=== PATIENT | female | born 1975 | race Caucasian/White ===

== ENCOUNTER 2019-12-10 11:23 | Emergency (ER) | payer BC, SELFPAY ==
[2019-12-10 11:35] VITALS: BP 142/94; PULSE 88; RESP 18; TEMP 36.4; O2SAT 100
--- NOTE | 2019-12-10 11:38 | ED.EYEPROB ---
HPI - Eye Problem General Chief complaint: Eye Problems Stated complaint: eye problems Time Seen by Provider: 12/10/19 11:38 Source: patient Mode of arrival: ambulatory Limitations: no limitations History of Present Illness HPI Narrative: Vanessa Cisneros is 44 YO female with a PMH of RA and asthma, who comes to express care with bilateral eye injection. Started a few weeks ago, has, some matting in eyes in morning but generally are irritated. Has used polymxixn and refresh drops. Visual acuity normal- had lasik surgery 18 years ago Related Data Home Medications Medication Instructions Recorded Confirmed albuterol sulfate [Ventolin HFA] 2 inh INHALATION Q4-5H PRN 12/10/19 12/10/19 etanercept [Enbrel SureClick] 50 mg SUBCUT WEEKLY 12/10/19 12/10/19 Allergies Allergy/AdvReac Type Severity Reaction Status Date / Time No Known Allergies Allergy Verified 12/10/19 11:28 Review of Systems Review of Systems: Narrative: CONSTITUTIONAL: Denies fever, chills, sweats. EYES: Denies visual changes, bilateral redness, discharge. ENT: Denies rhinorrhea, congestion, sore throat, otalgia. CARDIOVASCULAR: Denies chest pain, palpitations, edema. RESPIRATORY: Denies dyspnea, wheezing, cough GASTROINTESTINAL: Denies abdominal pain, nausea, vomiting, diarrhea. GENITOURINARY: Denies dysuria, hematuria, abnormal discharge SKIN: Denies rash or itching. NEUROLOGIC: Denies numbness, or focal weakness. PSYCHIATRIC: Denies anxiety or depression. PMFSH Family History Family History Father Diabetes mellitus Mother Family history of chronic obstructive pulmonary disease Other Family history of gout Family history of rheumatoid arthritis Social History Social History Smoking status: Current every day smoker Alcohol intake: current Comments At time of signature, I agree with nursing past medical, surgical, social and family history. There is no relevant family history pertinent to the presenting complaint. BP elevated - painul eyes, father last week- multiple stressors - follow up with pcp Exam Narrative: Exam Narrative: GENERAL: This is a well-nourished, well-developed patient, in mild distress. HEAD: normocephalic, atraumatic. EYES: PERRL. Mild bilateral injection, redness on the rims and inner canthus; vision is grossly intact. States feels gritty EARS: External ears normal. Hearing grossly intact. NOSE: External nose normal without nasal discharge, nares without redness, no rhinorrhea. THROAT: Mucous membranes moist, NECK: Neck supple, CARDIOVASCULAR: Regular rate and rhythm without murmurs, gallops, or rubs. RESPIRATORY: Clear to auscultation. Breath sounds equal bilaterally. No wheezes, rales, or rhonchi. GASTROINTESTINAL: Abdomen soft, SKIN: warm, intact with no suspicious lesions or rash, good texture and turgor. NEURO: awake, alert, and oriented to person, place and time. There were no obvious focal neurologic abnormalities. Steady gait EXTREMITIES: Normal range of motion. BACK: Nontender without deformity Course Course Emergency Course: started on patalol and polymixin- referred back to opthalmologist if continues with eye irritation Vital Signs Vital signs: Vital Signs Temperature 97.5 F L 12/10/19 11:35 Pulse Rate 88 12/10/19 11:35 Respiratory Rate 18 12/10/19 11:35 Blood Pressure 142/94 H 12/10/19 11:35 Pulse Oximetry 100 12/10/19 11:35 Temperature 97.5 F L 12/10/19 11:35 Pulse Rate 88 12/10/19 11:35 Respiratory Rate 18 12/10/19 11:35 Blood Pressure 142/94 H 12/10/19 11:35 Pulse Oximetry 100 12/10/19 11:35 MDM - Eye Problem Differential Diagnosis Differential diagnosis: Likely corneal abrasion, conjunctivitis and other Discharge Plan Discharge Clinical Impression: Bacterial conjunctivitis Patient Disposition: Home, Self-Care Condition: Sta
== END 2019-12-10 12:18 | disposition home or self-care (01) ==
PROVIDERS: Emergency Provider Nurse Practitioner; PCP Family Medicine
DX: H11.89 Other specified disorders of conjunctiva (principal)
CPT/HCPCS: 99213; G0463

== ENCOUNTER → 2020-02-26 10:36 | Outpatient (CLI) | payer BC, SELFPAY ==
--- NOTE | ~2020-02-26 | XR_ITS ---
EXAMINATION: XR ribs RT 2V w CXR 2V INDICATION: Right lower/posterior rib pain, shortness of breath, pain with breathing TECHNIQUE: Frontal and lateral views of the chest and 3 views of the right ribs were obtained. COMPARISON: 11/29/2018 FINDINGS: The lungs are free of acute opacities. There is no pleural effusion or pneumothorax. The ca rdiomediastinal silhouette is normal. There is mild thoracic spondylosis. No displaced rib fracture i s identified. Bilateral breast implants are noted. IMPRESSION: 1. No acute cardiopulmonary abnormality or evidence of displaced rib fracture. Reviewed, dictated and finalized at location A.
== END ==
PROVIDERS: Visit Provider Physician Assistant
DX: S20.90XA Unspecified superficial injury of unspecified parts of thorax, initial encounter (principal); X58.XXXA Exposure to other specified factors, initial encounter
CPT/HCPCS: 71046; 71100

== ENCOUNTER 2020-06-19 09:35 | Outpatient (CLI) | payer BC, SELFPAY ==
--- NOTE | ~2020-06-19 | MM_ITS ---
EXAMINATION: MM scrn nancy implant BI w ahmet HISTORY: Screening mammogram TECHNIQUE: Craniocaudal and mediolateral oblique 3-D tomosynthesis images with implant displacement a nd synthetic 2-D images were generated. Craniocaudal and mediolateral oblique views of the breasts wi thout implant displacement were obtained using full field digital mammography. CAD analysis was submi tted and interpreted. COMPARISON: 05/24/2019, 05/18/2018, 04/29/2017 bilateral implant digital screening mammogram examinati ons BREAST PARENCHYMAL COMPOSITION: The breasts are heterogeneously dense, which may obscure small masses . FINDINGS: Status post bilateral augmentation mammoplasty. New 5 mm opacity in the posterior inner mid left breast (craniocaudal Tomosynthesis image /). Gogo gnostic left mammogram and left breast ultrasound examination are recommended. Otherwise there is no evidence of suspicious mass, calcification, or architectural distortion to sugg est malignancy in either breast. There has been no suspicious interval change. IMPRESSION: 1. New 5 mm opacity at posterior inner mid left breast 2. Diagnostic left mammogram and targeted left breast ultrasound examination are recommended. BI-RADS Category 0: Incomplete: Needs additional imaging evaluation. Reviewed, dictated and finalized at location A. COMPANION IMPRESSION: 1. New 5 mm opacity at posterior inner mid left breast 2. Diagnostic left mammogram and targeted left breast ultrasound examination ar e recommended. BI-RADS Category 0: Incomplete: Needs additional imaging evaluation.
== END 2020-06-19 09:36 | disposition home or self-care (01) ==
LOC: ANHIMG 09:38
PROVIDERS: PCP Family Medicine; Visit Provider Obstetrics & Gynecology
DX: Z12.31 Encounter for screening mammogram for malignant neoplasm of breast (principal); R92.8 Other abnormal and inconclusive findings on diagnostic imaging of breast
CPT/HCPCS: 77063; 77067

== ENCOUNTER 2020-09-03 11:28 | Outpatient (CLI) | payer BC, SELFPAY ==
--- NOTE | ~2020-09-03 | MMUS_ITS ---
EXAMINATION: MM diagnostic mammo unilat LT, US breast LT limited HISTORY: New 5 mm mammographic opacity at posterior inner mid left breast reported on 06/19/2020 scre ening mammogram examination TECHNIQUE: Additional 3-D tomosynthesis images of the left breast were performed and synthetic 2-D im ages were generated. CAD analysis was submitted and interpreted. High resolution upper inner and lowe r inner left breast ultrasound was performed. COMPARISON: 06/19/2020 bilateral digital screening mammogram FINDINGS: MAMMOGRAPHIC FINDINGS: A 6 mm circumscribed opacity is confirmed in the inner mid left breast (spot craniocaudal Tomosynthes is image 18/42). ULTRASOUND: At the area of mammographic finding at 9:00 7 cm from the nipple is an oval parallel circumscribed hy poechoic solid lesion measuring approximately 3 x 5 x 6 mm, with some posterior shadowing. Ultrasound -guided biopsy is recommended. IMPRESSION: 1. 6 mm solid lesion at 9:00 7 cm from nipple with some posterior shadowing 2. Ultrasound-guided biopsy is recommended BI-RADS category 4, suspicious findings. Reviewed, dictated and finalized at location A. [employer]ICER IMPRESSION: 1. 6 mm solid lesion at 9:00 7 cm from nipple with some posterior shadowing 2. Ultrasound-guided biopsy is recommended BI-RADS category 4, suspicious findings.
== END 2020-09-03 11:29 | disposition home or self-care (01) ==
LOC: ANHIMG 11:31
PROVIDERS: PCP Family Medicine; Visit Provider Obstetrics & Gynecology
DX: R92.8 Other abnormal and inconclusive findings on diagnostic imaging of breast (principal)
CPT/HCPCS: 76642; 77065

== ENCOUNTER → 2021-09-01 07:49 | Outpatient (CLI) | payer OTHER, SELFPAY ==
--- NOTE | ~2021-09-01 | US_ITS ---
EXAMINATION: US right upper quadrant DATE: 09/01/2021 08:11 INDICATION: Right upper quadrant abdominal pain. TECHNIQUE: Multiple grayscale and Doppler ultrasound images of the abdomen were obtained. COMPARISON: None FINDINGS: Abdominal aorta is normal in caliber. The visualized portions of the head, body, and tail o f the pancreas are normal. The liver is normal without focal lesion. There is normal flow in main por moira vein. The gallbladder is normal in size. No gallstones or gallbladder wall thickening. There is n o sonographic Ruiz sign. The common duct is normal and measures 4 mm. IMPRESSION: 1. Normal right upper quadrant ultrasound. Reviewed, dictated and finalized at location A. RLINER
== END ==
PROVIDERS: Visit Provider Physician Assistant Medical
DX: R10.11 Right upper quadrant pain (principal)
CPT/HCPCS: 76705

== ENCOUNTER 2022-07-13 07:10 | Outpatient (CLI) | payer OTHER, SELFPAY ==
--- NOTE | ~2022-07-13 | NM_ITS ---
EXAMINATION: NM hepatobiliary wo pharm DATE: 07/13/2022 09:40 ONION TOPPER INDICATION: Right upper quadrant abdominal pain COMPARISON: Ultrasound dated 09/01/2021. TECHNIQUE: 5.2 mCi Tc-99m mebrofenin (Choletec) was administered intravenously. Scintigraphic images of the abdomen were obtained for one hour. At the 1 hour time point, the patient drank 8 oz Ensure, and imaging was continued for 60 minutes. Gallbladder ejection fraction was calculated by the technol ogist. FINDINGS: There is normal clearance of radiotracer from the blood pool. There is homogeneous tracer u ptake by the liver. Activity progresses to the bowel and gallbladder. The gallbladder ejection fract ion is 80%. Note that with this technique, normal GBEF >= 33%. IMPRESSION: 1. Normal hepatobiliary scan. Reviewed, dictated and finalized at location A. N TOPPER
== END 2022-07-13 07:11 | disposition home or self-care (01) ==
PROVIDERS: PCP Family Medicine; Visit Provider Physician Assistant
DX: R10.11 Right upper quadrant pain (principal)
CPT/HCPCS: 78226; A9537

== ENCOUNTER 2022-08-28 01:14 | Day surgery (SDC) | payer OTHER, SELFPAY ==
[2022-08-24 10:31] VITALS: BMI 22.8
--- NOTE | 2022-08-24 10:38 | PC.NURSE ---
Report to the Outpatient Waiting Room, entrance under the green pavilion located off [facility], at time 9:30 on date 08/28/22. Planned Procedure Time: 11:30. Time changes happen often and if your time is changed the preop area will call you the afternoon before. - You and your visitor will be asked to self-screen and do not enter if you have any COVID symptoms. - Only one visitor is requested with a max of two and NO children visitors are allowed at this time. - The patient visitor may be requested to leave or wait in car when not with patient due to distancing restrictions. - A mask is optional within the hospital at this time. Patients may have clear liquids (water, carbonated beverages, clear teas, apple juice) until 3 hours prior to surgery (8:30) with a maximum of 20 ounces. - No food from midnight until time of surgery Take the following medications with a SIP of water the morning of surgery: INHALERS DO NOT STOP ANY OF YOUR OTHER PRESCRIPTION MEDICATIONS PRIOR TO SURGERY?EXCEPT THE FOLLOWING Medications to discontinue per physician: N/A Date to take last dose: N/A Please no make-up, nail indonesian, hairspray, perfume, deodorant, or body powder the day of surgery. No jewelry (including any body piercings) or valuables the day of surgery, leave them at home. Please take a shower or bath the night before, or the morning of, surgery with an antibacterial soap. Wear comfortable, loose fitting clothing. - Jewelry must be removed prior to entering the operating room. Rings and piercings that are not removed may be cut off. - The hospital will not accept responsibility for valuables. - Please leave all valuables, including medications, at home the day of surgery. If you are going home after surgery, a licensed funeral driver must drive you home. - NO public transportation without another adult if you receive anesthesia. - We recommend that an adult stay with you for 24 hours following discharge. - We also recommend that you do not drive, make important decision, drink alcoholic beverages, or take any drugs that were not prescribed by your health care provider for at least 24 hours after your discharge time. Follow any additional instructions given to you from your surgeon. If you or anyone in your household have experienced Covid symptoms in the past week, please notify your surgeon or the nurse liaison at the phone number below for possible testing. Telephone instructions given to PT - GREGORIO WEEMS and asked if any additional questions and then verbalized understanding. Patient advised to call surgeon office or pre surgery nurse liaison [phone] if any additional questions.
--- NOTE | 2022-08-26 07:44 | P.HP_ITS ---
H&P: HPI History of Present Illness Date/Time: 08/26/22 07:44 Chief Complaint: Recurrent dysplasia Narrative: This is a 47-year-old female admitted for robotic hysterectomy and bilateral salpingectomy secondary to recurrent high-grade dysplasia. This patient has had multiple followups with continued worsening abnormal Paps. Risks and benefits of this procedure reviewed including not exclusive of , aspiration pneumonia, bleeding, transfusion, perforation injury to bowel, bladder, ureters, or other internal organs with need for laparotomy. She received the ACOG handout entitled hysterectomy as well as Ativan she handout. She had all questions answered. She asked to proceed [facility] Family History Family History Father Diabetes mellitus Mother Family history of chronic obstructive pulmonary disease Other Family history of gout Family history of rheumatoid arthritis Social History Social History Smoking packs per day: 0.25 Smoking cigarettes per day: 5.0 Years smoked: 6 Smoking pack-years: 1.50 Smoking status: Current every day smoker Tobacco type: cigarettes Alcohol intake: current Drinks per week: 10 Substance use: never Substance use type: does not use Living arrangements: with family Spiritual care concerns: No Meds Home Medications and Allergies Home Medications Medication Instructions Recorded Confirmed Type albuterol sulfate 90 mcg/actuation 2 inh inhalation Q4-5H PRN 08/22/21 08/24/22 Rx aerosol inhaler (Ventolin HFA) Shortness Of Breath #8.5 grams omeprazole 40 mg capsule,delayed 40 mg PO DAILY 30 days #30 caps 09/05/21 08/24/22 Rx release adalimumab 40 mg/0.8 mL See Rx Instructions subcut .COMPLEX 07/07/22 08/24/22 History subcutaneous pen kit (Humira Pen) Symbicort 160 mcg-4.5 See Rx Instructions .Route 07/20/22 08/24/22 Rx mcg/actuation HFA aerosol inhaler .COMPLEX #10.2 grams (budesonide-formoterol) Allergies Allergy/AdvReac Type Severity Reaction Status Date / Time No Known Allergies Allergy Verified 08/24/22 10:31 Exam Const: General: cooperative, healthy appearing, comfortable, well groomed and average body habitus Orientation/consciousness: oriented to person, oriented to place and oriented to time HENMT: Head: normal to inspection Resp: Effort & Inspection: normal respiratory effort Cardio: Rate: regular rate Rhythm: regular rhythm Heart sounds: S1 normal heart sound present and S2 normal heart sound present GI: Inspection: normal to inspection Auscultation: normal bowel sounds : External Female Exam: normal external appearance Speculum Exam - Vagina: normal appearance of the vagina Speculum Exam - Cervix: normal appearance of the cervix Bimanual exam- vagina & uterus: uterine shape normal and non-tender Bimanual Exam- Adnexa, other: normal adnexae Assessment and Plan Assessment and plan (1) HGSIL (high grade squamous intraepithelial dysplasia): Status: Acute Plan Robotic total vaginal hysterectomy and bilateral salpingectomy
[2022-08-28] VITALS (8 sets, daily range): BP systolic 112–130; BP diastolic 65–89; PULSE 60–91; RESP 10–18; TEMP 36.6–37.3; O2SAT 97–100
--- NOTE | 2022-08-28 07:05 | WPDHPUPDATE1 ---
History and Physical Update Update Date/Time: 08/28/22 07:05 History and Physical has been reviewed, including an updated exam of the patient. There are NO changes in the patient's condition. Risks, benefits, and alternatives have been discussed and questions answered. Patient agrees to proceed with procedure.
[2022-08-28] MEDS: LACTATED RINGERS 1,000 ML 30 ML IV CONT ×2 (09:33→13:39)
[2022-08-28] MEDS: KETOROLAC 15 MG/ML VIAL (*BKC) IV PUSH (09:35)
[2022-08-28] MEDS: ACETAMINOPHEN 500 MG TABLET 1000 MG PO (09:43)
[2022-08-28 09:53] LABS: Basophils Percent Auto 1.1 % (0.2-1.2); Eosinophils Absolute Auto 0.2 K/mm3 (0-0.3); Eosinophils Percent Auto 4.2 % (0-4.4); Hematocrit 41.6 % (37.0-47.0); Hemoglobin 13.6 g/dL (12.0-15.0); Immature Granulocyte Absolute 0.01 K/mm3 (0.00-0.031); Immature Granulocyte Percent A 0.3 % (0-0.5); Lymphocytes Absolute Auto 1.44 K/mm3 (0.9-3.2); Mean Corpuscular HGB Conc 32.7 g/dl (32-36); Mean Corpuscular Hemoglobin 31.7 pg (26-34); Mean Platelet Volume 9.4 fl (7.4-10.4); Monocytes Absolute Auto 0.6 K/mm3 (0.1-0.6); Monocytes Percent Auto 15.6 % (2.6-8.5); Neutrophils Absolute Auto 1.6 K/mm3 (1.3-6.7); Neutrophils Percent Auto 40.8 % (45.5-73.1); Platelet Count Result 307 k/mm3 (150-375); Red Blood Count 4.29 M/mm3 (4.2-5.4); Red Cell Distribution Width 13.4 % (11.5-14.5); White Blood Count 3.8 K/mm3 (4.5-10.0)
--- NOTE | 2022-08-28 10:25 | WPDANESEPPF ---
Anes - Initial Pre Proc Eval Procedure: Operation Date: 08/28/22 11:30 Proposed Procedures p Robotic Assisted Total Vaginal Hysterectomy with Bilateral Salpingectomy - Arnold Kelley MD Date/Time: 08/28/22 10:25 Surgeon: Arnold Kelley MD Pre Op Diagnosis: Enlarged Uterus, Abnormal Pap, (Dx Cont) Patient Data Age: 47 Gender: F Height: 1.73 m Weight: 67.25 kg Last Vital Signs Temp 97.8 F 08/28/22 09:10 Pulse 84 08/28/22 09:10 Resp 16 08/28/22 09:10 BP 122/85 08/28/22 09:10 Pulse Ox 97 08/28/22 09:10 O2 Del Method Room Air 08/28/22 09:10 Allergies Allergy/AdvReac Type Severity Reaction Status Date / Time No Known Allergies Allergy Verified 08/28/22 09:37 Home Medications Medication Instructions Recorded Confirmed Type albuterol sulfate 90 mcg/actuation 2 inh inhalation Q4-5H PRN 08/22/21 08/24/22 Rx aerosol inhaler (Ventolin HFA) Shortness Of Breath #8.5 grams omeprazole 40 mg capsule,delayed 40 mg PO DAILY 30 days #30 caps 09/05/21 08/28/22 Rx release adalimumab 40 mg/0.8 mL See Rx Instructions subcut .COMPLEX 07/07/22 08/24/22 History subcutaneous pen kit (Humira Pen) Symbicort 160 mcg-4.5 See Rx Instructions .Route 07/20/22 08/28/22 Rx mcg/actuation HFA aerosol inhaler .COMPLEX #10.2 grams (budesonide-formoterol) Laboratory Tests 08/28/22 09:17 WBC 3.8 K/mm3 L K/mm3 (4.5-10.0) RBC 4.29 M/mm3 M/mm3 (4.2-5.4) Hgb 13.6 g/dL g/dL (12.0-15.0) Hct 41.6 % % (37.0-47.0) MCV 97.0 fl fl (80-100) MCH 31.7 pg pg (26-34) MCHC 32.7 g/dl g/dl (32-36) RDW 13.4 % % (11.5-14.5) Plt Count 307 k/mm3 k/mm3 (150-375) MPV 9.4 fl fl (7.4-10.4) Immature Gran % (Auto) 0.3 % % (0-0.5) Neut % (Auto) 40.8 % L % (45.5-73.1) Lymph % (Auto) 38.0 % % (18.3-44.2) [place] % (Auto) 15.6 % H % (2.6-8.5) Eos % (Auto) 4.2 % % (0-4.4) Baso % (Auto) 1.1 % % (0.2-1.2) Lymph # (Auto) 1.44 K/mm3 K/mm3 (0.9-3.2) [place] # (Auto) 0.6 K/mm3 K/mm3 (0.1-0.6) Eos # (Auto) 0.2 K/mm3 K/mm3 (0-0.3) Baso # (Auto) 0.0 K/mm3 K/mm3 (0.0-0.1) Abs Immat Gran (auto) 0.01 K/mm3 K/mm3 (0.00-0.031) Absolute Neuts (auto) 1.6 K/mm3 K/mm3 (1.3-6.7) Absolute Nucleated RBC 0.0 K/mm3 K/mm3 (0.0-0.012) Nucleated RBC % 0.0 % % (0.0-0.2) Patient hx anesthesia problems: none Family hx anesthesia problems: none Results Review: All pre-operative results and documents have been reviewed as part of the pre-operative evaluation. [facility] Family History Family History Father Diabetes mellitus Mother Family history of chronic obstructive pulmonary disease Other Family history of gout Family history of rheumatoid arthritis Social History Social History Smoking packs per day: 0.25 Smoking cigarettes per day: 5.0 Years smoked: 6 Smoking pack-years: 1.50 Smoking status: Current every day smoker Tobacco type: cigarettes Alcohol intake: current Drinks per week: 10 Substance use: never Substance use type: does not use Living arrangements: with family Spiritual care concerns: No Anes - Eval Final PreProcedure Day of Procedure 08/28/22 10:25 Patient weight: normal Heart: regular rate and rhythm Lungs: clear to auscultation Airway: Mallampati scale class II Neurological: alert and oriented Last oral intake: >/= 8 hours ASA classification: II Emergent: no Anesthetic plan: proceed Anesthesia type and monitoring: general ETT and standard monitoring Results Review: All pre-operative results and documents have been reviewed as part of the pre-operative evaluation. Informed Consent: The patient's anesthetic plan and its attendant risks and benefits were discussed with the patient/family/POA. Questions were solicited and ans
--- NOTE | 2022-08-28 11:39 | SUR.PREOP ---
pt informed delay in procedure.
[2022-08-28] MEDS: ceFAZolin 2 GM/D5W 50 ML 2 GM/50 ML BAG IVPB (12:26)
--- NOTE | 2022-08-28 13:27 | W.PM.PROC2 ---
Procedure Note - Detailed Date of Procedure 08/28/22 Pre-op Diagnosis Enlarged Uterus, Abnormal Pap, (Dx Cont) Post-op Diagnosis Other ( left ovarian mass) Procedure Performed robotic total vaginal hysterectomy and bilateral salpingectomy with resection of left ovarian mass Surgeon Arnold Kelley MD Anesthesia General Indications this is a 47-year-old female with some pelvic pain and recurrent high-grade dysplasia Findings fairly normal-appearing uterus right ovary and tube left tube. A solid nodular growth off the uterus was noted which had a very benign bland appearance. Description of Procedure Patient was prepped draped in the normal sterile fashion placed in dorsal lithotomy position. Under excellent general trach anesthesia weighted speculum placed posterior fornix vagina. Anterior lip of the cervix grasped with single-tooth tenaculum. Uterus sounded to7.5cm. Serial dilatation with fragmented performed followed by passage of the 6. RYAN and the 3. Cold cup. A 16 Divehi catheter was placed in the bladder draining clear urine and the weighted speculum was removed with the single-tooth. The gloves were changed. A supraumbilical incision was made the Veress needle passed in the abdomen. Abdomen filled with CO2 gas [id number]. The 8mm trocar advanced in the abdomen. Downside visualized no injury seen. Patient placed in Trendelenburg and right and left lateral quadrant incisions made. 8mm trocars were advanced under direct visualization assuring no injury. A right upper quadrant incision made and the 8mm trocar advanced under direct visualization again assuring no injury. The robot was docked. Attention was turned to the console. The left round ligament was grasped, burned, cut. Anteriorly a bladder flap was formed by sharply dissecting the peritoneum and reflecting the bladder caudally away from the cervix uterus the opposite round ligament was clamped, burned, cut. Next the left fallopian tube was sharply dissected away from the ovarian complex and left attached to the uterine origin. The right fallopian tube was removed likewise by resecting the tube from the ovarian complex and leaving it attached to the uterine complex. The left utero-ovarian ligament was skeletonized to conserve the left ovary clamped, burned, cut and brought to the level of previously cut round ligament. In like fashion conserving the right ovary the utero-ovarian ligament was clamped, burned, cut and brought to the level of previously cut round ligament. Next the cardinal broad ligaments on the left were serially skeletonized clamping burning cutting until the uterine vessels could be seen left these were individually clamped, burned, cut. In like fashion the opposite side on the right the uterine ovarian ligaments were skeletonized clamped, burned, cut. The cardinal broad ligaments were clamped burned and cut and brought down lateral edge of the uterus until the uterine vessels could be seen on the right these were individually clamped, burned, cut. Colpotomy incision was made in the uterus tubes and cervix removed through the vagina. A solid golfball size mass was noted on the left ovary. Using sharp dissection this was shelled off without difficulty and passed through the vaginal incision. The vagina was then closed with continuous running 0V lock from lateral edge to lateral edge back to the midline. Irrigation undertaken to clear in all pedicles appeared dry robot was undocked the gas removed from the abdomen. The trocars removed and the incisions closed with 4 Monocryl and glue. The patient was awakened went to recovery in satisfactory condition. All sponge, needle, instrument counts were correct. There were no immediate complications Estimated Blood Loss 25 Drains No Packing No Pathology Yes Complications No immediate complications Condition Stable Disposition PACU
--- NOTE | 2022-08-28 13:31 | PM.DS ---
DS: Admitting Diagnosis Discharge Date 08/29/2022 Admitting Diagnosis recurrent high-grade dysplasia DS: Discharge Diagnosis Discharge Diagnosis (1) HGSIL (high grade squamous intraepithelial dysplasia): Status: Acute (2) Ovarian mass, left: Code(s): N83.8 - Other noninflammatory disorders of ovary, fallopian tube and broad ligament Status: Acute DS: Summary Hospital Course Reason for hospitalization: patient was admitted for robotic total vaginal hysterectomy and bilateral salpingectomy. Hospital Course: Patient underwent robotic total vaginal hysterectomy bilateral salpingectomy with removal of a left ovarian mass on 08/28/2022. Hospital course was unremarkable. She remained afebrile. She was up, voiding without difficulty, ambulating, eating regular diet, generally without complaints. Time Spent with Patient Time attestation: Total time spent providing and/or coordinating discharge services: Exam Const: General: cooperative, healthy appearing and comfortable Nutritional Appearance: average body habitus Orientation/consciousness: oriented to person, oriented to place and oriented to time HENMT: Head: normal to inspection Resp: Effort & Inspection: normal respiratory effort Cardio: Rate: regular rate Rhythm: regular rhythm Heart sounds: S1 normal heart sound present and S2 normal heart sound present GI: Inspection: normal to inspection and incision ( Wounds are clean dry and intact) DS: Data Data Completed and Pending Pending studies at discharge: Pending at discharge 08/28/22 13:03 Surgical [PTH] Routine Labs on day of discharge: Labs from last 24 hours 08/28/22 08/28/22 09:17 09:17 WBC 3.8 L RBC 4.29 Hgb 13.6 Hct 41.6 MCV 97.0 MCH 31.7 MCHC 32.7 RDW 13.4 Plt Count 307 MPV 9.4 Immature Gran % (Auto) 0.3 Neut % (Auto) 40.8 L Lymph % (Auto) 38.0 [place] % (Auto) 15.6 H Eos % (Auto) 4.2 Baso % (Auto) 1.1 Lymph # (Auto) 1.44 [place] # (Auto) 0.6 Eos # (Auto) 0.2 Baso # (Auto) 0.0 Abs Immat Gran (auto) 0.01 Absolute Neuts (auto) 1.6 Absolute Nucleated RBC 0.0 Nucleated RBC % 0.0 Blood Type A Positive Antibody Screen Negative Discharge Plan Discharge Patient Disposition: Home, Self-Care Discharge Instructions: Call or return if temperature above 100.4? F, increased abdominal pain, increased vaginal bleeding or any new problems. Nothing in vagina for six weeks. Patient Instructions: Laparoscopic Hysterectomy (DC) Stand Alone Forms: General Discharge Instructions Follow-up/Referrals: Arnold Us MD [Physician] - Discharge Medications: Continued albuterol sulfate [Ventolin HFA] 90 mcg/actuation HFA aerosol inhaler 2 inh INHALATION Q4-5H PRN (Reason: Shortness Of Breath) Qty: 8.5 2RF Humira Pen 40 mg/0.8 mL pen injector kit See Rx Instructions subcut .COMPLEX Rx Instructions: inject one - 40 mg/0.8 mL pen every 2 weeks subcut PRESCRIBED BY DR. BARROW omeprazole 40 mg capsule,delayed release(DR/EC) 40 mg PO DAILY 30 Days Qty: 30 1RF budesonide-formoterol [Symbicort] 160-4.5 mcg/actuation HFA aerosol inhaler See Rx Instructions .ROUTE .COMPLEX Qty: 10.2 3RF Dose Instruction: INHALE 2 PUFFS BY MOUTH EVERY 12 HOURS Rx Instructions: INHALE 2 PUFFS BY MOUTH EVERY 12 HOURS Other Ambulatory Orders: Complete Blood Count with Diff (Routine) Timeframe: 2 Months Location: Determined by Patient Ordered By: Arnold Kelley Type and Screen 14 Day (Routine) Timeframe: 2 Months Location: Determined by Patient Ordered By: Arnold Kelley
[2022-08-28] MEDS: fentaNYL CITRATE INJ (*CRX) 100 MCG/2 ML VIAL 25 MCG IV PUSH ×3 (14:08→14:18)
--- NOTE | 2022-08-28 14:45 | PC.NURSE ---
This patient, Vanessa Cisneros, was received from PACU on 08/28/22 at 1445. Patient/family oriented to unit policies and routines
[2022-08-28] MEDS: DEXTROSE 5%/0.45% SOD CHL 1,000 ML 125 ML IV CONT (15:19)
[2022-08-28] MEDS: KETOROLAC 30 MG/ML VIAL (*BKC) IV PUSH (15:20)
[2022-08-28] MEDS: HYDROcodone/acetaminophen (*CRX) 5-325 MG TABLET 1 TAB PO ×2 (19:00→22:10)
[2022-08-28] MEDS: DOCUSATE SODIUM 100 MG CAPSULE PO (19:00)
[2022-08-28] MEDS: IBUPROFEN 600 MG TABLET PO (22:10)
[2022-08-29] MEDS: HYDROcodone/acetaminophen (*CRX) 10-325 MG TABLET 1 TAB PO ×3 (01:25→10:15)
[2022-08-29 04:30] VITALS: BP 135/91; PULSE 66; RESP 16; TEMP 36.4
[2022-08-29] MEDS: IBUPROFEN 600 MG TABLET PO ×2 (04:38→10:15)
[2022-08-29 05:19] LABS: Basophils Percent Auto 0.3 % (0.2-1.2); Eosinophils Percent Auto 0.4 % (0-4.4); Hematocrit 35.7 % (37.0-47.0); Hemoglobin 11.8 g/dL (12.0-15.0); Immature Granulocyte Absolute 0.03 K/mm3 (0.00-0.031); Immature Granulocyte Percent A 0.3 % (0-0.5); Lymphocytes Absolute Auto 1.74 K/mm3 (0.9-3.2); Lymphocytes Percent Auto 17.6 % (18.3-44.2); Mean Corpuscular HGB Conc 33.1 g/dl (32-36); Mean Corpuscular Hemoglobin 31.8 pg (26-34); Mean Corpuscular Volume 96.2 fl (80-100); Mean Platelet Volume 9.7 fl (7.4-10.4); Monocytes Absolute Auto 0.9 K/mm3 (0.1-0.6); Neutrophils Absolute Auto 7.2 K/mm3 (1.3-6.7); Neutrophils Percent Auto 72.4 % (45.5-73.1); Platelet Count Result 271 k/mm3 (150-375); Red Blood Count 3.71 M/mm3 (4.2-5.4); Red Cell Distribution Width 13.1 % (11.5-14.5); White Blood Count 9.9 K/mm3 (4.5-10.0)
--- NOTE | 2022-08-29 07:59 | P.PNAN_ITS ---
Anes - Prog Note Post-Op Date/Time: 08/29/22 07:59 Cardiovascular status: normal Respiratory status: normal Airway patency: baseline Mental status: baseline Post-Op hydration status: normal Vital Signs: Last Vital Signs Temp 36.4 C L 08/29/22 04:30 Pulse 66 08/29/22 04:30 Resp 16 08/29/22 04:30 BP 135/91 H 08/29/22 04:30 Pulse Ox 97 08/28/22 17:30 O2 Del Method Room Air 08/28/22 14:31 O2 Flow Rate 8 08/28/22 14:15 Pain Score (VAS): 2 I/O: Intake & Output 08/28/22 08/28/22 08/29/22 15:59 23:59 07:59 Intake Total 1890 2460 Output Total 1100 Balance 1890 1360 Laboratory Tests 08/29/22 04:34 08/28/22 08/28/22 08/29/22 09:17 09:17 04:34 WBC 3.8 L 9.9 RBC 4.29 3.71 L Hgb 13.6 11.8 L Hct 41.6 35.7 L MCV 97.0 96.2 MCH 31.7 31.8 MCHC 32.7 33.1 RDW 13.4 13.1 Plt Count 307 271 MPV 9.4 9.7 Immature Gran % (Auto) 0.3 0.3 Neut % (Auto) 40.8 L 72.4 Lymph % (Auto) 38.0 17.6 L [place] % (Auto) 15.6 H 9.0 H Eos % (Auto) 4.2 0.4 Baso % (Auto) 1.1 0.3 Lymph # (Auto) 1.44 1.74 [place] # (Auto) 0.6 0.9 H Eos # (Auto) 0.2 0.0 Baso # (Auto) 0.0 0.0 Abs Immat Gran (auto) 0.01 0.03 Absolute Neuts (auto) 1.6 7.2 H Absolute Nucleated RBC 0.0 0.0 Nucleated RBC % 0.0 0.0 Blood Type A Positive Antibody Screen Negative Post-procedural complaints: none Patient Feedback: Patient satisfied with anesthetic care.
[2022-08-29 09:00] VITALS: BP 131/88; PULSE 55; RESP 20; TEMP 36.6; O2SAT 98
[2022-08-29] MEDS: DOCUSATE SODIUM 100 MG CAPSULE PO (09:00)
[2022-08-29] MEDS: SIMETHICONE 80 MG TAB.CHEW PO (10:15)
--- NOTE | 2022-08-29 10:56 | PM.GYNPNOP ---
STABBER - A/P Assessment and plan (1) HGSIL (high grade squamous intraepithelial dysplasia): Status: Acute Assessment and Plan: A: POD#1, s/p robotic assisted TVHBS, with left ovarian cystectomy, doing well. P: Home to f/u 2 weeks in the office. (2) Ovarian mass, left: Code(s): N83.8 - Other noninflammatory disorders of ovary, fallopian tube and broad ligament Status: Acute Postoperative Procedures: Procedures Operation Date: 08/28/22 11:30 Actual Procedure Side Surgeon p Robotic Assisted Total Vaginal Hysterectomy with Bilateral Salpingectomy Bilateral Arnold Kelley MD Postoperative day: 1 Time Spent With Patient Time with patient: less than 15 minutes STABBER- PN:Subj Post-Op Subjective Date/time seen: 08/29/22 10:56 Interval history: Pain OK. Tolerating diet. Voiding. Would like to go home. Exam Narrative: AVSS I/O OK ABD soft, nontender. Incisions c/d/i. EXT nontender STABBER - PN: Obj Data Vital Signs Vital Signs: Vital Signs - 24 hr 08/28/22 13:45 08/28/22 14:00 08/28/22 14:15 Temperature 36.7 C Pulse Rate 73 60 66 Respiratory Rate 12 10 L 12 Blood Pressure 122/87 130/89 125/74 Pulse Oximetry 100 97 100 Oxygen Delivery Simple Face Mask Simple Face Mask Simple Face Mask Oxygen Flow Rate 8 8 8 08/28/22 14:31 08/28/22 14:50 08/28/22 17:30 Temperature 36.7 C 37.3 C Pulse Rate 70 67 74 Respiratory Rate 11 L 18 16 Blood Pressure 115/86 120/78 112/65 Pulse Oximetry 97 97 97 Oxygen Delivery Room Air Oxygen Flow Rate 08/28/22 19:00 08/29/22 04:30 Temperature 36.9 C 36.4 C L Pulse Rate 91 66 Respiratory Rate 16 16 Blood Pressure 120/67 135/91 H Pulse Oximetry Oxygen Delivery Oxygen Flow Rate Intake/Output Intake/Output: Intake & Output 08/26/22 08/27/22 08/28/22 08/29/22 23:59 23:59 23:59 23:59 Intake Total 4350 Output Total 1100 Balance 3250 Meds/Results Medications: Active Medications Generic Name Dose Route Start Last Admin Trade Name Freq PRN Reason Stop Dose Admin Hydrocodone Bitart/Acetaminophen 1 tab 08/28/22 14:43 08/28/22 22:10 Hydrocodone/Acetaminophen (*Crx) 5-325 Mg Tablet PO 1 tab Q3H PRN Administration Pain Rated 5 or Less Hydrocodone Bitart/Acetaminophen 1 tab 08/28/22 14:43 08/29/22 04:38 Hydrocodone/Acetaminophen (*Crx) 10-325 Mg Tablet PO 1 tab Q3H PRN Administration Pain Rated 6 or Greater Docusate Sodium 100 mg 08/28/22 17:00 08/28/22 19:00 Docusate Sodium 100 Mg Capsule PO 100 mg BID YEVGENIY Administration Enoxaparin Sodium 40 mg 08/29/22 09:00 Enoxaparin 40 Mg/0.4 Ml Syringe SUB-Q DAILY YEVGENIY Ibuprofen 600 mg 08/28/22 14:43 08/29/22 04:38 Ibuprofen 600 Mg Tablet PO 600 mg Q6H PRN Administration Cramping Ketorolac Tromethamine 30 mg 08/28/22 14:43 08/28/22 15:20 Ketorolac 30 Mg/Ml Vial (*Bkc) IV PUSH 09/02/22 14:42 30 mg Q6H PRN Administration Pain Rated 4-6 Naloxone HCl 0.1 mg 08/28/22 14:43 Naloxone Hcl 0.4 Mg/Ml Vial IV PUSH Q2M PRN Respiratory rate less than 10 Ondansetron HCl 4 mg 08/28/22 14:43 Ondansetron Inj 4 Mg/2 Ml Vial IV PUSH Q6H PRN Nausea And Vomiting Simethicone 80 mg 08/28/22 14:43 Simethicone 80 Mg Tab.Chew PO Q2H PRN Gas Labs 08/29/22 04:34 Labs: Laboratory Results - last 24 hr 08/29/22 04:34 WBC 9.9 RBC 3.71 L Hgb 11.8 L Hct 35.7 L MCV 96.2 MCH 31.8 MCHC 33.1 RDW 13.1 Plt Count 271 MPV 9.7 Immature Gran % (Auto) 0.3 Neut % (Auto) 72.4 Lymph % (Auto) 17.6 L [place] % (Auto) 9.0 H Eos % (Auto) 0.4 Baso % (Auto) 0.3 Lymph # (Auto) 1.74 [place] # (Auto) 0.9 H Eos # (Auto) 0.0 Baso # (Auto) 0.0 Abs Immat Gran (auto) 0.03 Absolute Neuts (auto) 7.2 H Absolute Nucleated RBC 0.0 Nucleated RBC % 0.0
--- NOTE | 2022-08-29 11:02 | PM.DS ---
DS: Admitting Diagnosis Discharge Date 08/29/22 Admitting Diagnosis Severe cervical dysplasia Left ovarian mass DS: Discharge Diagnosis Discharge Diagnosis (1) HGSIL (high grade squamous intraepithelial dysplasia): Status: Acute (2) Ovarian mass, left: Code(s): N83.8 - Other noninflammatory disorders of ovary, fallopian tube and broad ligament Status: Acute DS: Summary Hospital Course Hospital Course: Admitted on the date of scheduled surgery. Did well postop and went home on POD1. Time Spent with Patient Time attestation: Total time spent providing and/or coordinating discharge services: DS: Data Data Completed and Pending Pending studies at discharge: Pending at discharge 08/28/22 13:03 Surgical [PTH] Routine Labs on day of discharge: Labs from last 24 hours 08/29/22 04:34 WBC 9.9 RBC 3.71 L Hgb 11.8 L Hct 35.7 L MCV 96.2 MCH 31.8 MCHC 33.1 RDW 13.1 Plt Count 271 MPV 9.7 Immature Gran % (Auto) 0.3 Neut % (Auto) 72.4 Lymph % (Auto) 17.6 L [place] % (Auto) 9.0 H Eos % (Auto) 0.4 Baso % (Auto) 0.3 Lymph # (Auto) 1.74 [place] # (Auto) 0.9 H Eos # (Auto) 0.0 Baso # (Auto) 0.0 Abs Immat Gran (auto) 0.03 Absolute Neuts (auto) 7.2 H Absolute Nucleated RBC 0.0 Nucleated RBC % 0.0 Discharge Plan Discharge Patient Disposition: Home, Self-Care Discharge Instructions: Call or return if temperature above 100.4? F, increased abdominal pain, increased vaginal bleeding or any new problems. Nothing in vagina for six weeks. Patient Instructions: Laparoscopic Hysterectomy (DC) Stand Alone Forms: General Discharge Instructions Follow-up/Referrals: Arnold Us MD [Physician] - Discharge Medications: Continued albuterol sulfate [Ventolin HFA] 90 mcg/actuation HFA aerosol inhaler 2 inh INHALATION Q4-5H PRN (Reason: Shortness Of Breath) Qty: 8.5 2RF Humira Pen 40 mg/0.8 mL pen injector kit See Rx Instructions subcut .COMPLEX Rx Instructions: inject one - 40 mg/0.8 mL pen every 2 weeks subcut PRESCRIBED BY DR. BARROW omeprazole 40 mg capsule,delayed release(DR/EC) 40 mg PO DAILY 30 Days Qty: 30 1RF budesonide-formoterol [Symbicort] 160-4.5 mcg/actuation HFA aerosol inhaler See Rx Instructions .ROUTE .COMPLEX Qty: 10.2 3RF Dose Instruction: INHALE 2 PUFFS BY MOUTH EVERY 12 HOURS Rx Instructions: INHALE 2 PUFFS BY MOUTH EVERY 12 HOURS Other Ambulatory Orders: Complete Blood Count with Diff (Routine) Timeframe: 2 Months Location: Determined by Patient Ordered By: Arnold Kelley Type and Screen 14 Day (Routine) Timeframe: 2 Months Location: Determined by Patient Ordered By: Arnold Kelley
[2022-08-29] MEDS: ENOXAPARIN 40 MG/0.4 ML SYRINGE SUB-Q (11:08)
== END 2022-08-29 11:55 | disposition home or self-care (01) ==
LOC: ANHSURGERY 09:00 → ANHOB2 14:47
PROVIDERS: PCP Family Medicine; Visit Provider Obstetrics & Gynecology
PROC: (CPT 58571; principal; 2022-08-28 11:30)
DX: N80.00 Endometriosis of the uterus, unspecified (principal); D06.9 Carcinoma in situ of cervix, unspecified; D27.1 Benign neoplasm of left ovary; Z79.51 Long term (current) use of inhaled steroids; Z79.620 Long term (current) use of immunosuppressive biologic; F17.210 Nicotine dependence, cigarettes, uncomplicated
CPT/HCPCS: 58571; 58662; S2900; 36415; 85025; 86850; 86900; 86901; 88307; 99199; A9270; J0690; J1100; J1650; J1885; J2250; J2405; J2704; J3010; J7030; J7120

== ENCOUNTER 2023-02-23 16:27 | Emergency (ER) | payer OTHER, SELFPAY ==
[2023-02-23 16:44] VITALS: BP 158/111; PULSE 78; RESP 16; TEMP 37.3; O2SAT 99
--- NOTE | 2023-02-23 18:03 | ED.GENADULT ---
HPI - General Adult General Chief complaint: Wound/Laceration Stated complaint: Insect Bite Source: patient Mode of arrival: ambulatory Limitations: no limitations History of Present Illness HPI narrative: Patient presents for evaluation of a skin lesion to the right lower extremity and another one to the left lower extremity. She states yesterday she was at work wearing pants and she felt something on her right lower extremity. She scratched the area and then noted an area of redness in an annular formation to the lateral aspect of the right lower leg. Today she noted another one to the left knee. She does have some mild pruritus. She denies any drainage from the affected area. The areas are tender to palpation. No fever, chills, nausea, vomiting. She is not diabetic. She smokes 1/4-1/2 ppd. She has not visualized any ticks on her skin as of late but she has been outdoors. She is currently on Humira per rheumatology. Related Data Home Medications Medication Instructions Recorded Confirmed adalimumab 40 mg/0.8 mL See Rx Instructions subcut .COMPLEX 07/07/22 08/24/22 subcutaneous pen kit (Humira Pen) Allergies Allergy/AdvReac Type Severity Reaction Status Date / Time No Known Allergies Allergy Verified 02/23/23 17:19 Review of Systems Review of Systems: CONSTITUTIONAL: Denies fever, chills, or sweats. EYES: Denies visual changes, redness, or discharge. ENT: Denies rhinorrhea, congestion, sore throat, or otalgia. CARDIOVASCULAR: Denies chest pain, palpitations, or edema. RESPIRATORY: Denies cough or dyspnea. GASTROINTESTINAL: Denies abdominal pain, nausea, vomiting, or diarrhea. GENITOURINARY: Denies dysuria or hematuria. SKIN: Reports an erythematous lesion with associated pruritus to the right lower leg. Reports an erythematous lesion to the left knee. MUSCULOSKELETAL: Denies back pain, joint pain, or myalgia. NEUROLOGIC: Denies headache, numbness, dizziness, or weakness. PSYCHIATRIC: Denies anxiety or depression. [facility] Past Medical History Medical History Rheumatoid arthritis Surgical History Surgical History H/O total vaginal hysterectomy Family History Family History Father Diabetes mellitus Mother Family history of chronic obstructive pulmonary disease Other Family history of gout Family history of rheumatoid arthritis Social History Social History Smoking packs per day: 0.25 Smoking cigarettes per day: 5.0 Years smoked: 6 Smoking pack-years: 1.50 Smoking status: Current every day smoker Tobacco type: cigarettes Alcohol intake: current Drinks per week: 10 Substance use: never Substance use type: does not use Living arrangements: with family Spiritual care concerns: No Exam Narrative: GENERAL: Well-appearing, well-nourished, and in no acute distress. HEAD: Normocephalic, atraumatic. EYES: PERRLA and EOMI. ENT: Nares clear, no rhinorrhea or epistaxis. Mucous membranes moist. Oropharynx without tonsillar hypertrophy exudate or other lesions. Bilateral TMs pearly bui nonbulging NECK: Supple. No adenopathy or masses. No carotid bruits or JVD CHEST: Clear to auscultation. No respiratory distress. No wheezes rales or rhonchi HEART: Regular rate and rhythm. No murmur heard. Normal peripheral pulses. ABDOMEN: Soft, nontender, nondistended, normal active bowel sounds. EXTREMITIES: Normal range of motion. No edema. SKIN: there is a 3 x 3.5 cm annular area of erythema to the lateral aspect of the right lower leg with some associated warmth. There is a 1 x 1.5 cm area of erythema and an annular formation to the left knee with associated warmth. NEURO: No focal deficits. Alert and oriented x3. PSYCH: Normal mood and a
== END 2023-02-23 18:13 | disposition home or self-care (01) ==
PROVIDERS: Emergency Provider Nurse Practitioner; PCP Family Medicine
DX: R21 Rash and other nonspecific skin eruption (principal); F17.210 Nicotine dependence, cigarettes, uncomplicated; M06.9 Rheumatoid arthritis, unspecified
CPT/HCPCS: 99213; G0463

== ENCOUNTER 2024-04-15 08:58 | Outpatient (CLI) | payer BC, SELFPAY ==
--- NOTE | ~2024-04-15 | XR_ITS ---
EXAMINATION: XR chest 2V 04/15/2024 09:15 INDICATION: Chronic cough PROCEDURE: 2 view chest COMPARISON: 02/26/2020 FINDINGS: The lungs are clear. The lungs are hyperinflated which is consistent with, but not diagnost ic of chronic obstructive pulmonary disease. The cardiomediastinal silhouette is within normal limits . There are no pleural effusions. There is no pneumothorax suspected. There are healed right sixth and seventh rib fractures. IMPRESSION: 1: NO ACUTE CARDIOPULMONARY DISEASE. Reviewed, dictated and finalized at location B.
== END 2024-04-15 08:59 | disposition home or self-care (01) ==
LOC: MICIMG 08:59
PROVIDERS: PCP Student in an Organized Health Care Education/Training Program; Visit Provider Student in an Organized Health Care Education/Training Program
DX: R05.3 Chronic cough (principal)
CPT/HCPCS: 71046

== ENCOUNTER 2025-04-09 09:47 | Outpatient (CLI) | payer BC, SELFPAY ==
--- OUTSIDE RECORDS SUMMARY | 2025-04-09 10:33 | XMS_ITS | Encounter Summary ---
Author Organization [facility] Address [address] [place] [address] Care Team Providers Care Laboratory Chemical Assistant Name Role Phone Iva Poe MD Primary Care Provider Unavailable Encounter Details Date Type Department Care Team (Late st Contact Info) Description 05/01/2017 [place] [address] Iva Poe MD Social History Tobacco Use Types Packs/Day Years Used Date Smoking Tobacco: Never Assessed Comments Unknown Sex and Gender Information Value Date Recorded Sex Assigned at Not on file Legal Sex Female 5:08 PM CDT Gender Identity Not on file Sexual Orientation Not on file documented as of this encounter Plan of Treatment Not on file documented as of this encounter Visit Diagnoses Not on filedocumented in this encounter Care Teams Laboratory Chemical Assistant Relationship Specialty Start Date End Date Iva Poe MD PCP - General 02/11/14 documented as of this encounter
--- OUTSIDE RECORDS SUMMARY | 2025-04-09 10:33 | XMS_ITS | Encounter Summary ---
Author Organization [facility] Address [address] [place] [address] Phone Care Team Providers Care Riding Instructor Name Role Phone Speedy Gomez MD Primary Care Provider [phone] Marysol Baldwin RN Unavailable Joleen vailable Encounter Details Date Type Department Care Team (Late st Contact Info) Description 02/12/2025 Results Follow-Up [facility] Medicine Pulmonary [address] [facility] Advanced [facility] [address]th [place] [address] [place] [address] Jordyn Pisano MD [address] [place] [address] CT chest without contrast Social History Tobacco Use Types Packs/Day Years Used Date Smoking Tobacco: Former Cigarettes Smokeless Tobacco: Never AUDIT-C Answer Date Recorded Q1: How often do you have a drink containing alc ohol? 2-3 times a week 11/25/2022 Q2: How many drinks containi ng alcohol do you have on a typical day when you are drinking? 3 or 4 11/25/2022 Q3: How often do you have si x or more drinks on one occasion? Less than monthly 11/25/2022 Personal Safety Answer Date Recorded Have you ever been in or are you currently in a harmful physical or emotional relationship or is someone making you feel afraid or unsafe? 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 Will repeat CT in a year. documented in this encounter Plan of Treatment Not on file documented as of this encounter Visit Diagnoses Not on filedocumented in this encounter Care Teams Riding Instructor Relationship Specialty Start Date End Date Speedy Gomez MD PCP - General Family Medicine 10/27/17 Marysol Baldwin, RN Registered Nurse Pulmonary Disease 10/19/24 documented as of this encounter
--- OUTSIDE RECORDS SUMMARY | 2025-04-09 10:33 | XMS_ITS | Clinical Summary ---
Author Organization [facility] Address [address] [place] [id number] Care Team Providers Care Hydraulic Miner Name Role Phone Unavailable Primary Care Provider Unavailabl e Immunizations Immunization Administration Dates Next Due MODERNA COVID-19 (12+) MRNA, LNP-S, PF, 100 MCG/ 0.5 ML DOSE 07/25/2020,06/27/2020 Social History Tobacco Use Types Packs/Day Years Used Date Smoking Tobacco: Never Assessed Comments Unknown Sex and Gender Information Value Date Recorded Sex Assigned at Not on file Legal Sex Female 5:08 PM CDT Gender Identity Not on file Sexual Orientation Not on file Plan of Treatment Health Maintenance Due Date Last Done Comments Cervical Cancer Screening Pa p Smear (Age 30 to 64) Every 3 Years 1974 Colorectal Cancer Screening Colonoscopy (10 Years) 1974 Annual Physical 1977 Hepatitis C 02/07/1992 DTaP, Tdap and Td Vaccines ( 1 - Tdap) 1993 Hepatitis B Vaccines (1 of 3 - 19+ 3-dose series) 1993 Cervical Cancer Screening Pa p with HPV Testing (Age 30 to 64) Every 5 Years 02/07/2004 Cervical Cancer Screening wi th HPV 02/07/2004 Mammogram Screening 2014 Pneumococcal Vaccine: 50+ Years (1 of 1 - PCV) 02/07/2024 Zoster Vaccines (1 of 2) 02/07/2024 COVID-19 Vaccine (3 - 2024-2 6 season) 2025 07/25/2020, 06/27/2020 Influenza Adult (#1) 2025 Meningococcal B Vaccine Aged Out No l onger eligible based on patient's age to complete this topic Meningococcal Vaccine Aged Out No donald janis eligible based on patient's age to complete this topic RSV Immunizations Under 20 Months Aged Out No longer eligible b ased on patient's age to complete this topic
--- OUTSIDE RECORDS SUMMARY | 2025-04-09 10:33 | XMS_ITS | Clinical Summary ---
Author Organization [facility] Address [address] [place] [id number] Care Team Providers Care Detonator Assembler Name Role Phone Speedy Gomez MD Primary Care Provider [phone] Marysol Baldwin RN Unavailable Joleen vailable Allergies Active Allergy Reactions Criticality Noted Date Comments Bacitracin-Polymyxin B Eye irritation Medium 0 Eye Drops Medications VENTOLIN HFA 90 mcg/actuation inhaler INHALE 2 PUFFS PO Q 4 HOURS PRN 11 8 Active OMEPRAZOLE ORAL Take 20 mg by mouth daily Pt did not specify dose and frequency Active Symbicort 160-4.5 mcg/actuation inhaler Inhale 2 puffs daily 3 Active diphenhydramine HCl (ALLERGY ORAL) Take by mouth Active inhalational spacing device (Aerochamber MV) spacer Take 1 Units by mouth 2 (two) times a day Use with inhaler 1 each 5 Active Humira,CF, Pen 40 mg/0.4 mL pen injector kit INJECT 40 MG (0.4 ML) UNDER THE SKIN EVERY 7 DAYS 4 each 2 5 Active estradioL 0.5 mg/0.5 gram (0.1 %) gel in packet APPLY 1 PACKET TOPICALLY TO THE SKIN DAILY 5 Active ibandronate (BONIVA) 150 mg tablet Take 1 tablet (150 mg total) by mouth every 30 (thirty) days Take on an empty stomach. Do not lie down or eat for 1/2 hour after taking. 1 tablet 11 5 02/02/20 26 Active Active Problems Problem Noted Date Diagnosed Date Chronic cough 10/18/2024 Osteoporosis 11/30/2023 RUQ abdominal pain 10/13/2022 Altered bowel habits 10/13/2022 Diarrhea 10/13/2022 Immunosuppression due to drug therapy 10/13/2022 Colon cancer screening 10/13/2022 Epigastric pain 10/16/2021 Abnormal findings on diagnostic imaging of jumana t 09/25/2020 High risk medication use 12/21/2019 Seropositive rheumatoid arthritis of multiple belem ints 01/13/2018 Assessment & Plan (01/07/2023 1:07 PM CDT): Today she presents with flare of her articular inflammation and has been off therapy for over 1 month. She subjectively reports she had significant improvement on weekly and she had active disease documented on her every 2 week regimen. We will contact it created to determine what the hold up is; I was unable to locate any samples for her here today but I would like to see her in close follow-up after resuming her regimen. 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 At this time I recommend resuming hydroxychloroquine at 400 mg daily in addition to Enbrel so that she has background medication to maintain her when she stops and starts her TNF inhibitor. She reports she has had an ophthalmologic examination within 6 months and I have asked her to follow up with me in 5 months. I strongly recommend that she receive a COVID-19 vaccination. Assessment & Plan (12/21/2019 3:17 PM CDT): I discussed with her that at this time her therapy has been so erratic that I really cannot assess how well she is doing. Given that her disease activity is low to moderate, I would recommend simply resuming Enbrel alone with meloxicam p.r.n. and I have asked her to advise me through the portal her status in 3 months. She should follow up with me in 6 months. We will check latent tuberculosis status and monitoring laboratories on chronic NSAID therapy. Assessment & Plan (01/13/2018 1:39 PM CDT): Patient's global assessment is a 5 today with complaints of pain with usage but also stiffness in the morning. Her systemic inflammatory markers have been normal and I would like to repeat hand films today to see if she has any inflammatory changes. If there are none, I would simply recommend continuing the same regimen. If there are changes, we would need to consider changing Enbrel. I will keep hydroxychloroquine as background therapy for the time being. Encounters Date Type Department Care Team Description 02/13/2025 Telephone [facility] Medicine Pulmonary [address] [place] [address] [place] [address] Marysol Baldwin, YOSEPH 02/12/2025 Results Follow-Up [facility] Medicine Pulmonary [address] [place] [address] [place] [address] chest without contrast 2025 Telephone [facility] Medicine Pulmonary [address] [place] [address] [place] [address] Marysol Baldwin, YOSEPH 02/01/2025 2:00 PM CDT Lab [facility] Medicine Endocrinology Metabolism and Lipid [address] [place] [address] [place] [address] Seropositive rheumatoid arthritis of multiple joints (HCC) 02/01/2025 1:40 PM CDT Office Visit [facility] Medicine Rheumatology [address] [place] [address] [place] [address] Tabitha Car MD Seropositive rheumatoid arthritis of multiple joints (HCC) (Primary Dx); Other osteoporosis without current pathological fracture 01/30/2025 2:30 PM CDT - 01/30/2025 11:59 PM CDT Hospital Encounter [facility] [address] [place] [address] Lung nodule Discharge Disposition: Discharge to home or self care 01/11/2025 10:22 AM CDT - 01/11/2025 11:59 PM CDT Hospital Encounter [facility] [address] [facility] [address] [place] [address] Screening mammogram, encounter for Discharge Disposition: Discharge to home or self care from Last 3 Months Immunizations Immunization Administration Dates Next Due Influenza, Quadrivalent, Gladys l Culture-based MDCK, Preservative Free, Antibiotic Free, Intramuscular 05/13/2023 Surgical History Surgery Date Site/Laterality Comments HYSTERECTOMY 06/28/2022 - 06/27/2023 prior Hysteroscopy With Endometrial Ablation AUGMENTATION MAMMAPLASTY Bilateral 2014 BUNIONECTOMY 2012, 2017 Medical History Medical History Date Comments Personal history of other di seases of the nervous system and sense organs History of migraine wi th aura - (Added by TW Conv) Chronic headaches Rheumatoid arthritis (HCC) Humir a GERD (gastroesophageal reflux disease) Asthma Family History Medical History Relation Name Comments Diabetes Father Diabetes Mellit us - (Added by TW Conv) Gout Father Gout - (Added b y TW Conv) Hypertension Father Hypertension - (Added by TW Conv) COPD Mother Chronic Obstruc tive Pulmonary Disease - (Added by TW Conv) Colon cancer Paternal Grandfather Maligna nt Neoplasm, Colon - (Added by TW Conv) Relation Name Status Comments Father Mother Paternal Grandfather Social History Tobacco Use Types Packs/Day Years [...] on file Legal Sex Female 7:46 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 Gender Identity Not on file Sexual Orientation Not on file Obstetrics History Para Term AB IAB SAB Ectopic Multiple Livin g Live Births 1 1 1 Date Outcome GA Total Labor Labor/2nd/3rd Weight Sex Type Anes PTL Richelle A1 A5 Name Clin Term Last Filed Vital Signs Vital Sign Reading Time Taken Comments Blood Pressure 161/104 02/01/2025 1:23 PM CDT Pulse 72 02/01/2025 1:23 PM CDT Temperature 36.5 C (97.7 F) 02/01/2025 1:23 PM CDT Respiratory Rate 18 10/18/2024 8:24 AM CDT Oxygen Saturation 99% 10/18/2024 8:24 AM CDT Inhaled Oxygen Concentration - - Weight 78.3 kg (172 lb 9.6 oz) 02/01/2025 1:23 P M CDT Height 172.7 cm (5' 8) 01/11/2025 10:42 AM CDT Body Mass Index 26.24 01/11/2025 10:42 AM CDT Plan of Treatment Health Maintenance Due Date Last Done Comments Depression Screening 1975 DTaP/Tdap/Td Vaccine (1 - Tdap) 1985 Regular Well Visit/Exam 18-64 02/07/1992 Pneumococcal vaccine <65 (1 of 2 - PCV) 1993 Zoster Vaccine (1 of 2) 1993 Covid-19 Vaccine (3 - Modern a risk series) 08/22/2020 07/25/2020, 06/27/2020 Influenza Vaccine (#1) 2025 05/13/2023, 2019 Breast Cancer Screening-Mammogram 01/11/2026 01/11/2025, 01/11/2024, 12/10/2022, Additional history exists Colon Cancer Screening-Colonoscopy 11/26/20322022 Hepatitis B Screening Completed 10/13/2022 Hepatitis C Screening Completed 10/13/2022 Procedures Procedure Name Priority Date/Time Associated Diagnosis Comments CRP (ACUTE PHASE) Routine 02/01/2025 2:0 7 PM CDT Seropositive rheumatoid arthritis of multiple joints (HCC) ERYTHROCYTE SEDIMENTATION RATE Routine 02/01/2025 2:07 PM CDT Seropositive rheumatoid arthritis of multiple joints (HCC) CT CHEST WO CONTRAST Schedule Routine, Read Routine (OP Routine) 01/30/2025 2:42 PM CDT Lung nodule SCREENING MAMMOGRAM BILATERAL W MIKHAIL W IMPLANTS Schedule Routine, Read Routine (OP Routine) 01/11/2025 10:42 AM CDT Screening mammogram, encounter for COLONOSCOPY 11/26/2022 7:19 AM CDT HEPATITIS C ANTIBODY Routine 10/13/2022 8:52 AM CDT Immunosuppression due to drug therapy Need for hepatitis C screening test from Last 3 Months or Most Recently Relevant to Health Maintenance Results * Erythrocyte sedimentation rate (02/01/2025 2:07 PM CDT) Erythrocyte Sedimentation Rate 21 <30 mm/hr [facility] Blood 02/01/2025 2:07 PM CDT 02/01/2025 3:08 PM CDT Tabitha Car MD LAB BLOOD ORDERABLES Final R esult Performing Organization Address [facility] Co de Phone Number [facility] * CRP (acute phase) (02/01/2025 2:07 PM CDT) C-Reactive Protein, Acute <3.0 <5.0 mg/L [facility] Blood 02/01/2025 2:07 PM CDT 02/01/2025 3:08 PM CDT Tabitha Car MD LAB BLOOD ORDERABLES Final R esult Performing Organization Address [facility] Co de Phone Number [facility] * CT chest without contrast (01/30/2025 2:42 PM CDT) Anatomical Region Laterality Modality Body N/A Computed Tomogra phy 02/10/2025 10:0 4 AM CDT Narrative 02/10/2025 10:18 AM CDT EXAM DESCRIPTION: CT CHEST WO CONTRAST REASON FOR STUDY: Lung nodule, > 8mm Following pulmonary abnormalities opacity seen on prior imaging dating back to October 2024 TECHNIQUE: CT scan of the chest performed without intravenous contrast using helical scanning technique. Reconstructed coronal and sagittal MPR images reviewed. All images stored on PACS. Automated exposure control was used as a dose optimization technique for this examination. COMPARISON: Previous CT chest 10/26/2024 was a baseline study that identified in the irregular lesion in the left apex. FINDINGS: The sensitivity for detection of solid visceral lesions is diminished without the use of intravenous contrast. LUNGS: The irregular opacity in the left upper lobe has a linear and spherical component and is unchanged in size and appearance since previous. Rounded lesion component is about 9 mm in the linear component along the lateral margin is 15 mm. This favors a benign lesion such as fibronodular scarring. In general, 2 years of stability is required to edema lesion benign. Would recommend a 1 year follow-up CT. There is mild biapical fibronodular change.. Some irregular infiltrative nodular changes are seen in the inferior right middle lobe probably atelectatic near the diaphragm. No bronchial thickening or bronchiectasis. Bilateral breast implants are present. Mediastinum is normal. No calcific coronary plaque of the coronaries or arch. No adenopathy. No pleural or pericardial effusions. Limited upper abdomen normal. IMPRESSION: Stable irregular nodule left upper lobe, recommend 12 month follow-up. THIS IS AN ELECTRONICALLY VERIFIED FINAL REPORT 02/10/2025 10:18 AM - Electronically signed by Heber Joseph M.D. DA T: Report ID: [id number] Reading Location: [place] [address] Procedure Note Heber Joseph MD - 02/10/2025 EXAM DESCRIPTION: CT CHEST WO CONTRAST REASON FOR STUDY: Lung nodule, > 8mm Following pulmonary abnormalities opacity seen on prior imaging datingback to October 2024 TECHNIQUE: CT scan of the chest performed without intravenous contrastusing helical scanning technique. Reconstructed coronal and sagittal MPR images reviewed. All images stored on PACS. Automated exposure control was usedas a dose optimization technique for this examination. COMPARISON: Previous CT chest 10/26/2024 was a baseline study that identified in the irregular lesion in the left apex. FINDINGS: The sensitivity for detection of solid visceral lesions is diminished without the use of intravenous contrast. LUNGS: The irregular opacity in the left upper lobe has a linear and spherical component and is unchanged in size and appearance sinceprevious. Rounded lesion component is about 9 mm in the linear component along the lateral margin is 15 mm. This favors a benign lesion such as fibronodular scarring. In general, 2 years of stability is required to edema lesion benign. Would recommend a 1 year follow-up CT. There is mild biapical fibronodular change.. Some irregular infiltrative nodular changes are seen in the inferior right middle lobe probably atelectatic near the diaphragm. No bronchial thickening orbronchiectasis. Bilateral breast implants are present. Mediastinum is normal. Nocalcific coronary plaque of the coronaries or arch. No adenopathy. No pleural or pericardial effusions. Limited upper abdomen normal. IMPRESSION: Stable irregular nodule left upper lobe, recommend 12 month follow-up. THIS IS AN ELECTRONICALLY VERIFIED FINAL REPORT 02/10/2025 10:18 AM - Electronically signed by Heber Joseph M.D. DA T: Report ID: [id number] Reading Location: [place] [address] us Jordyn Pisano MD IMG CT PROCEDURES Final Resu lt * Screening Mammogram Bilateral W Mikhail W Implants (01/11/2025 10:42 AM CDT) Anatomical Region Laterality Modality Breast Bilateral Mammography Impressions 01/11/2025 11:01 AM CDT BI-RADS ATLAS category (overall): 1 - Negative There is no mammographic evidence of malignancy. A 1 year screening mammogram is recommended. The patient has been or will be contacted. We recommend annual screening mammography for women at average risk of breast cancer beginning at age 40, based on guidelines of the [employer] (ACR Practice Parameter for the Performance of Screening and Diagnostic Mammography) and [employer]. For women with and elevated risk of breast cancer, please refer to the ACR Practice Parameter for specific screening recommendations. The patient will be entered into a reminder system with a target due date of 1 year for her next screening exam. Narrative 01/11/2025 11:01 AM CDT Screening Mammogram Bilateral W Mikhail W Implants: 01/11/25 The study was acquired using full field digital technology and interpreted from soft copy. 2D digital mammographic views, as well as 3D digital tomosynthesis were performed in the CC and MLO projections. CLINICAL: Screening mammogram, encounter for. No relevant medical history has been documented for this patient. No known family history of breast cancer. No comparisons were made when reading this study. BREAST TISSUE: The breasts are heterogeneously dense, which may obscure small masses. FINDINGS: Bilateral breast subpectoral silicone gel implants are stable. The presence of implants limits the sensitivity of mammography. There is no new suspicious finding in either breast on mammogram. us Self Screening Mammogram IMG MAMMO PROCEDURES Fi nal Result * COLONOSCOPY (11/26/2022 7:19 AM CDT) Anatomical Region Laterality Modality Other Narrative Procedure Note Loren Flores MD - 11/26/2022 7:19 AM CDT ENDOSCOPY LAB Patient Name: Vanessa Cisneros Procedure Date: 11/26/2022 7:19 AM Admit Type: Outpatient Room: [facility] Date of : 1975 Instrument Name: [id number] Gender: Female Note Status: Finalized Procedure: Colonoscopy Indications: Screening for colorectal malignant neoplasm, Thisis the patient's first colonoscopy; Chronic diarrhea Providers: Loren Flores M.D. Referring MD: Speedy Gomez M.D. Medicines: Monitored Anesthesia Care Complications: No immediate complications. Estimated Blood Loss: Estimated blood loss was minimal. Procedure: Pre-Anesthesia Assessment: - Immediately prior to administration ofmedications, the patient was re-assessed for adequacy to receive sedatives. - The risks and benefits of the procedure and the sedation options and risks were discussed with the patient. All questions were answered and informed consent was obtained. The benefits, risks and alternatives of theprocedure and sedation were discussed and informed consentwas obtained. All questions were answered. Please referto the signed informed consent document in the medical record. The scope was passed under direct vision.The Colonoscope was introduced through the anus and advanced to the the cecum, identified byappendiceal orifice and ileocecal valve. The colonoscopy was performed without difficulty. The patient tolerated the procedure well. The quality of the bowel preparation was evaluated using the BBPS (BostonBowel Preparation Scale) with scores of: Right Colon = 2 (minor amount of residual staining, small fragmentsof stool and/or opaque liquid, but mucosa seen well), Transverse Colon = 3 (entire mucosa seen well withno residual staining, small fragments of stool oropaque liquid) and Left Colon = 3 (entire mucosa seen well with no residual staining, small fragments of stoolor opaque liquid). The total BBPS score equals 8. The quality of the bowel preparation was good. The ileocecal valve, appendiceal orifice, and rectumwere photographed. The bowel preparation used wasGoLYTELY via split dose instruction. Findings: The perianal and digital rectal examinations were normal. A 5 mm polyp was found in the recto-sigmoid colon. The polyp was sessile. The polyp was removed with a cold snare. Resection and retrieval were complete. Estimated blood loss was minimal. A couple other typical hyperplastic polyps were not removed. The colon (entire examined portion) appeared normal otherwise.Biopsies for histology were taken with a cold forceps from the entire colonfor evaluation of microscopic colitis. No additional abnormalities were found on retroflexion. Impression: - One 5 mm polyp at the recto-sigmoid colon,removed with a cold snare. Resected and retrieved. - The entire examined colon is normal. Biopsied. Recommendation: - Patient has a contact number available for emergencies. The signs and symptoms of potential delayed complications were discussed with thepatient. Return to normal activities tomorrow. Written discharge instructions were provided to thepatient. - Resume previous diet. - Continue present medications. - Await pathology results. - Repeat colonoscopy in 7-10 years for surveillance based on pathology results. - Return to GI clinic as previously scheduled. Attending Participation: I personally performed the entire procedure. Electronically signed by Loren Flores MD Loren Flores M.D. 11/26/2022 8:21:03 AM This document was signed electronically. Number of Addenda: 0 Note Initiated On: 11/26/2022 7:19 AM Scope Withdrawal Time: 0 hours 8 minutes 52 seconds Scope In: 7:58:11 AM Scope Out: 8:13:27 AM Loren Flores MD ENDOSCOPY PROCEDURES Lexi l Result * Hepatitis C antibody (10/13/2022 8:52 AM CDT) Hep C Ab Nonreactive Nonreactive [facility] Comment: Interpretive Data Nonreactive: Antibodies to HCV not detected. Does NOT exclude the possibility of recent exposure to HCV. Equivocal: Equivocal for HCV antibodies. Supplemental molecular testing will be automatically performed to determine infection status in accordance with current CDC screening recommendations. Reactive: Positive for HCV antibodies. This may represent current or past HCV infection. Supplemental molecular testing will be automatically performed to determine current infection status in accordance with current CDC screening recommendations. Interpretive data was last revised on 2019. Blood 10/13/2022 8:52 AM CDT 10/13/2022 9:28 AM CDT us Loren Flores MD LAB MICROBIOLOGY - GENERA L ORDERABLES Edited Result - Final [facility] [address] Department [place] [address] from Last 3 Months or Most Recently Relevant to Health Maintenance Insurance [facility] H[facility]/PPO Address: [address] [address] [place] [address] [facility] [employer] [place] [employer] [place] For more information, please contact: [phone] * Full Code (Latest Code Status on File) Date Activated Date Inactivated Comments 11/26/2022 6:50 AM 11/26/2022 12:50 PM Care Teams Detonator Assembler Relationship Specialty Start Date End Date Speedy Gomez MD PCP - General Family Medicine 10/27/17 Marysol Baldwin, RN Registered Nurse Pulmonary Disease 10/19/24
[2025-04-09 13:00] LABS: Hematocrit 39.8 % (37.0-47.0); Hemoglobin 13.2 g/dL (12.0-15.0); Mean Corpuscular HGB Conc 33.2 g/dl (32-36); Mean Corpuscular Hemoglobin 30.4 pg (26-34); Mean Corpuscular Volume 91.7 fl (80-100); Platelet Count Result 362 k/mm3 (150-375); Red Blood Count 4.34 M/mm3 (4.2-5.4); White Blood Count 4.3 K/mm3 (4.5-10.0)
[2025-04-09 13:15] LABS: Alanine Aminotransferase 42 U/L (6-35); Albumin Level 4.8 g/dL (3.5-5.1); Alkaline Phosphatase 70 U/L (38-126); Anion Gap 10 mmol/L (4-12); Aspartate Amino Transferase 73 U/L (14-36); Bilirubin,Total 0.5 mg/dL (0.2-1.3); Blood Urea Nitrogen 7 mg/dL (7-17); Calcium 9.6 mg/dL (8.4-10.2); Carbon Dioxide 25 mmol/L (22-30); Chloride 102 mmol/L (98-107); Cholesterol 227 mg/dL (0-200); Estimated Glomerular Filt Rate > 60; Glucose 76 mg/dL (65-110); HDL Direct 107 mg/dL; Potassium 4.4 mmol/L (3.4-5.0); Sodium 137 mmol/L (137-145); Total Protein 8.7 g/dL (6.3-8.2); Triglycerides 58 mg/dL (<150)
[2025-04-09 13:57] LABS: Thyroid Stimulating Hormone 1.390 uIU/mL (0.465-4.680)
== END 2025-04-09 09:48 | disposition home or self-care (01) ==
LOC: ANHGOSHLAB 09:48
PROVIDERS: PCP Family Medicine; Visit Provider Student in an Organized Health Care Education/Training Program
DX: R74.8 Abnormal levels of other serum enzymes (principal); Z13.220 Encounter for screening for lipoid disorders; D64.9 Anemia, unspecified
CPT/HCPCS: 36415; 80053; 80061; 84443; 85027

== ENCOUNTER 2025-06-13 10:41 | Outpatient (CLI) | payer BC, SELFPAY ==
--- NOTE | ~2025-06-13 | CT_ITS ---
CT abdomen pelvis w con Clinical History: R10.9 - Unspecified abdominal pain . Comparison: None Technique: Axial images lung bases to symphysis pubis IV contrast information not listed in PACS Coronal, sagittal reformats CT images acquired with automatic exposure control for dose reduction DLP: 490 mGy-cm Findings: Lung bases: Small left pleural effusion, associated dependent atelectasis. Visualized heart and pericardium: Unremarkable. Liver: Enlarged. Steatosis. Gallbladder: Unremarkable. Spleen: Unremarkable. Pancreas: Unremarkable. Adrenal glands: Unremarkable. Kidneys: Right kidney- No hydronephrosis. No renal stones. Left kidney- No hydronephrosis. No renal stones. Distal esophagus/stomach: Unremarkable. Small bowel loops: Normal caliber and wall thickness. Colon: Normal caliber and wall thickness. Normal RLQ appendix. Nodes: No enlarged nodes. Peritoneum: No ascites. No free air. Urinary bladder: Unremarkable. Uterus: Removed. Adnexa: No masses. Bones: No acute bony abnormality. Soft tissues: Breast implants. Aorta: No aneurysm or dissection. IVC: Unremarkable. Main portal vein/SMV/splenic vein: Patent. IMPRESSION: 1. Small left pleural effusion, associated basilar atelectasis and/or airspace disease. 2. No acute abnormality within abdomen or pelvis. Reviewed, dictated and finalized at location R. TY LOAN SPECIALIST
--- OUTSIDE RECORDS SUMMARY | 2025-06-13 12:50 | XMS_ITS | Clinical Summary ---
Author Organization [facility] Address [address] [place] [address] Care Team Providers Care Traffic Checker Name Role Phone Speedy Gomez MD Primary Care Provider [phone]- [phone] Encounters Date Type Department Care Team Description 04/23/2025 10:03 AM CDT - 04/23/2025 11:59 PM CDT Hospital Encounter [facility] [address] [place] [address] Jewel Garcia MD Discharge Disposition: Home or Self Care (Routine Discharge) 04/23/2025 Travel from Last 3 Months Immunizations Immunization Administration Dates Next Due MODERNA [...] Date Last Done Comments Cervical Cancer Screening Pap Smear (Age 30 to 64) Every 3 Years 1974 Colorectal Cancer Screening Colonoscopy (10 Years) 1974 Annual Physical 1977 Hepatitis C 02/07/1992 Hepatitis B Vaccines (1 of 3 - 19+ 3-dose series) 1993 Cervical Cancer Screening Pap with HPV Testing (Age 30 to 64) Every 5 Years 02/07/2004 Cervical Cancer Screening with HPV 02/07/2004 Pneumococcal Vaccine: 50+ Years (1 of 1 - PCV) 02/07/2024 Zoster Vaccines (1 of 2) 02/07/2024 COVID-19 Vaccine (3 - season) 2025 07/25/2020, 06/27/2020 Influenza Adult (#1) 2025 05/13/2023, 04/14/2021, 04/10/2010 Mammogram Screening 01/11/2027 01/11/2025, 01/11/2024, 12/10/2022, Additional history exists DTaP, Tdap and Td Vaccines (3 - Td or Tdap) 08/09/2033 08/09/2023, 12/16/2007 Hepatitis A Vaccines Aged Out No long er eligible based on patient's age to complete this topic Meningococcal B Vaccine Aged Out No l onger eligible based on patient's age to complete this topic Meningococcal Vaccine Aged Out No donald janis eligible based on patient's age to complete this topic RSV Immunizations Under 20 Months Aged Out No longer eligible based on patient's age to complete this topic Procedures Procedure Name Priority Date/Time Associated Diagnosis Comments CT HEART SCREEN CALCIUM SCORE PROMO Routine 04/23/2025 10:20 AM CDT Screening for ischemic heart disease from Last 3 Months Results * CT HEART SCREEN CALCIUM SCORE PROMO (04/23/2025 10:20 AM CDT) Anatomical Region Laterality Modality Chest Computed Tomogra phy 04/23/2025 10:2 0 AM CDT Impressions 04/23/2025 10:21 AM CDT =====IMPRESSION:===== Total Score: 0 No plaque, very low risk, very unlikely for probability of significant CAD Ordered By: JEWEL GARCIA Interpreted By: Miguel Viveros MD, 04/23/2025 10:20 AM Narrative 04/23/2025 10:21 AM CDT [address] [place] [address] EXAMINATION: Multislice Helical CT Coronary Calcium Scoring REASON FOR EXAM: Screening for heart disease COMPARISON: None TECHNIQUE: Multislice helical CT images of the proximal coronary arteries with a computer generated calcification score. A dose lowering technique was used for this procedure, which may include, but is not limited to, dose reduction technique, automated exposure control, iterative reconstruction, ALARA (As Low As Reasonably Achievable), or Image Gently techniques. Results: Left main: 0 LAD: 0 Circumflex: 0 Right coronary: 0 Total Score: 0 Comments: There is no mediastinal adenopathy, and there are no pulmonary nodules in the visualized portions of the chest. Calcium score guidelines: Total Score* Calcium Plaque [place] *Risk *Probability of significant CAD 0 No Plaque Very Low Very unlikely 1-10 Minimal Plaque Low Unlikely 11-100 Mild Plaque Moderate Low likelihood of significant stenosis <50% 101-400 Moderate Plaque Moderately High Moderate likelihood of significant stenosis (>50%) Over 400 Extensive Plaque High High likelihood of significant stenosis (>50%) The amount of coronary artery calcification correlates with the severity of coronary atherosclerosis and the probability of future significant event. Calcification is not site specific for stenosis and does not identify non-calcified atherosclerotic plaque, but rather indicates the extent of atherosclerosis in the coronary arteries overall. The score may be used as an indicator for risk factor modification or additional cardiac testing. Significant change in calcium score over time may be indicative of subsequent disease development or useful as a benchmark to assess preventative programs. Procedure Note Miguel Viveros MD - 04/23/[address] [address] EXAMINATION: Multislice Helical CT Coronary Calcium Scoring REASON FOR EXAM: Screening for heart disease COMPARISON: None TECHNIQUE: Multislice helical CT images of the proximal coronary arterieswith a computer generated calcification score. A dose lowering techniquewas used for this procedure, which may include, but is not limited to,dose reduction technique, automated exposure control, iterativereconstruction, ALARA (As Low As Reasonably Achievable), or Image Gentlytechniques. Results: Left main: 0 LAD: 0 Circumflex: 0 Right coronary: 0 Total Score: 0 Comments: There is no mediastinal adenopathy, and there are no pulmonarynodules in the visualized portions of the chest. Calcium score guidelines: Total Score* Calcium Plaque [place] *Risk *Probability ofsignificant CAD 0 No Plaque Very LowVery unlikely 1-10 Minimal Plaque LowUnlikely 11-100 Mild Plaque ModerateLow likelihood of significant stenosis <50% 101-400 Moderate Plaque Moderately HighModerate likelihood of significant stenosis (>50%) Over 400 Extensive Plaque HighHigh likelihood of significant stenosis (>50%) The amount of coronary artery calcification correlates with the severityof coronary atherosclerosis and the probability of future significantevent. Calcification is not site specific for stenosis and does notidentify non-calcified atherosclerotic plaque, but rather indicates theextent of atherosclerosis in the coronary arteries overall. The score may be used as an indicator for risk factor modification oradditional cardiac testing. Significant change in calcium score over timemay be indicative of subsequent disease development or useful as abenchmark to assess preventative programs. =====IMPRESSION:===== Total Score: 0 No plaque, very low risk, very unlikely for probability ofsignificant CAD Ordered By: JEWEL GARCIA Interpreted By: Miguel Viveros MD, 04/23/2025 10:20 AM us Jewel Garcia MD CT Final Res ult from Last 3 Months Care Teams Traffic Checker Relationship Specialty Start Date End Date Speedy Gomez MD [facility] [address] [place] [address] PCP - General FAMILY PRACTICE 04/11/25
--- OUTSIDE RECORDS SUMMARY | 2025-06-13 12:50 | XMS_ITS | Clinical Summary ---
Author Organization [facility] Address [address] [place] [id number] Care Team Providers Care Title Officer Name Role Phone Speedy Gomez MD Primary Care Provider [phone] [phone] Marysol Baldwin RN Unavailable Joleen vailable Allergies [...] Use with inhaler 1 each 5 Active estradioL 0.5 mg/0.5 gram (0.1 %) gel in packet APPLY 1 PACKET TOPICALLY TO THE SKIN DAILY 5 Active ibandronate (BONIVA) 150 mg tablet Take 1 tablet (150 mg total) by mouth every 30 (thirty) days Take on an empty stomach. Do not lie down or eat for 1/2 hour after taking. 1 tablet 11 5 02/02/20 26 Active adalimumab (Humira,CF, Pen) 40 mg/0.4 mL pen injector kit Inject 0.4 mL (40 mg total) under the skin every 7 days 12 each 1 5 Active Active Problems Problem Noted Date Diagnosed [...] regimen. Assessment & Plan (06/13/2020 5:00 PM BLOCK ENGRAVER): Today she complains of increased disease activity. [...] Encounters Date Type Department Care Team Description 04/25/2025 Telephone [facility] [address] [place] [address] Ly Weller RPh from Last 3 Months Immunizations Immunization Administration [...] on file Legal Sex Female 7:46 PM BLOCK ENGRAVER Gender Identity Not on file Sexual Orientation [...] Procedure Name Priority Date/Time Associated Diagnosis Comments SCREENING MAMMOGRAM BILATERAL W MIKHAIL W IMPLANTS Schedule Routine, Read Routine (OP Routine) 01/11/2025 10:42 AM CDT Screening mammogram, encounter for COLONOSCOPY 11/26/2022 7:19 AM CDT HEPATITIS C ANTIBODY Routine 10/13/2022 8:52 AM CDT Immunosuppression due to drug therapy Need for hepatitis C screening test from Last 3 Months or Most Recently Relevant to Health Maintenance Results * Screening Mammogram Bilateral W Mikhail W [...] age 40, based on guidelines of the [employer] (ACR Practice Parameter for the Performance of Screening and Diagnostic Mammography) and [employer]. For women [...] 11/26/2022 7:19 AM Admit Type: Outpatient Room: [facility] Date of : 1975 Instrument Name: [id number] [...] CDT) Hep C Ab Nonreactive Nonreactive [facility] Comment: Interpretive Data Nonreactive: Antibodies to [...] 8:52 AM CDT 10/13/2022 9:28 AM CDT Loren Flores MD LAB MICROBIOLOGY - GENERA L ORDERABLES Edited Result - Final [facility] [address] Department [place] [address] from Last 3 Months or Most Recently Relevant to Health Maintenance Insurance [facility]/PPO Address: [address] [address] [place] [address] [facility] Advance Directives For more information, please contact: [phone] * Full Code (Latest Code Status on File) Date Activated Date Inactivated Comments 11/26/2022 6:50 AM 11/26/2022 12:50 PM Care Teams Title Officer Relationship Specialty Start Date End Date Speedy Gomez MD PCP - General Family Medicine 10/27/17 Marysol Baldwin, RN Registered Nurse Pulmonary Disease 10/19/24
--- OUTSIDE RECORDS SUMMARY | 2025-06-13 12:50 | XMS_ITS | Encounter Summary ---
Author Organization [facility] Address [address] [place] [address] Care Team Providers Care Rehab Aid Name Role Phone Iva Poe MD Primary Care Provider Unavailable Speedy Gomez MD Primary Care Provider [phone]- [phone] Encounter Details Date Type Department Care Team (Late st Contact Info) Description 05/01/2017 [place] [address] Iva Poe MD Social History Tobacco Use [...] on filedocumented in this encounter Care Teams Rehab Aid Relationship Specialty Start Date End Date Iva Poe MD PCP - General 02/11/14 Speedy Gomez MD [facility] [address] [address] PCP - General FAMILY PRACTICE 04/11/25 documented as of this encounter
== END 2025-06-13 10:42 | disposition home or self-care (01) ==
PROVIDERS: PCP Family Medicine; Visit Provider Nurse Practitioner Family
DX: R10.9 Unspecified abdominal pain (principal); J90 Pleural effusion, not elsewhere classified
CPT/HCPCS: 74177; Q9967